=== PATIENT | female | born 1995 | race Two or more races ===

== ENCOUNTER 2023-05-02 18:30 | Emergency (ER) | payer OTHER ==
[~2023-05-02] VITALS: Ht 152.4 cm; Wt 68.0 kg
[~2023-05-02 18:30] MED LIST: HM EYE DROPS RE15 ML OP; SYNTHROID50 MCG PO
== END 2023-05-02 23:45 | disposition home or self-care (01) ==
LOC: ER 18:30
DX: K52.89 Other specified noninfective gastroenteritis and colitis (principal); E03.8 Other specified hypothyroidism

== ENCOUNTER → 2025-06-10 | Emergency (ER) | payer OTHER ==
[~2025-06-10] VITALS: Ht 167.6 cm; Wt 72.6 kg
[~2025-06-10] MED LIST changes: +KETOROLAC TROMETHAMINE 60 MG VIAL IM ONE
== END | disposition left against medical advice (07) ==
LOC: ER 11:34
DX: Z53.21 Procedure and treatment not carried out due to patient leaving prior to being seen by health care provider (principal)